=== PATIENT | female | born 1970 | race Caucasian/White ===

== ENCOUNTER 2017-12-02 18:49 | Emergency (ER) | payer OTHER ==
[~2017-12-02] VITALS: Ht 167.6 cm; Wt 74.8 kg
[2017-12-02] MEDS ORDERED: PROZAC20 MG PO (19:00)
[2017-12-02 19:38] LABS: URINE BILIRUBIN NEGATIVE (Negative); URINE BLOOD NEGATIVE (Negative); URINE CLARITY CLEAR; URINE COLOR YELLOW; URINE GLUCOSE-RANDOM NEGATIVE (Negative); URINE KETONES NEGATIVE (Negative); URINE LEUKOCYTES-REFLEX NEGATIVE (Negative); URINE NITRITE-REFLEX NEGATIVE (Negative); URINE PROTEIN NEGATIVE (Negative); URINE SPECIFIC GRAVITY 1.025 (1.005-1.030); URINE UROBILINOGEN 0.2 E.U./dl (0.2-1.0)
[2017-12-02 19:45] LABS: ABSOLUTE BASOPHILS 0.1 thou/uL (0.0-0.2); ABSOLUTE EOSINOPHILS 0.3 thou/uL (0.0-0.7); ABSOLUTE LYMPHOCYTES 4.9 thou/uL (0.8-5.3); ABSOLUTE MONOCYTES 0.6 thou/uL (0.0-1.2); ABSOLUTE NEUTROPHILS 4.7 thou/uL (1.6-8.1); BASOPHILS 1.3 %; EOSINOPHILS 2.4 %; HEMATOCRIT 41.1 % (37.0-47.0); HEMOGLOBIN 13.9 gm/dL (12.0-15.0); LYMPHOCYTES 46.2 %; MCH 32.1 pg (26.0-34.0); MCHC 33.7 g/dL (28.0-37.0); MCV 95.1 fL (80.0-100.0); MONOCYTES 5.7 %; MPV 9.7 fl. (7.2-11.1); NUCLEATED RBCS 0 /100WBC; PLATELET COUNT* 236 thou/uL (150-400); POLYS 44.4 %; RBC 4.32 mil/uL (4.20-5.00); RDW-CV 12.9 % (10.5-14.5); WBC 10.7 thou/uL (4.0-11.0)
[2017-12-02 19:54] LABS: CALCIUM 9.1 mg/dL (8.5-10.1); CREATININE 0.7 mg/dL (0.6-1.3); POTASSIUM 3.8 mmol/L (3.5-5.1)
[2017-12-02 20:04] LABS: ALBUMIN 3.5 g/dL (3.4-5.0); TOTAL BILIRUBIN 0.2 mg/dL (<0.1-1.0); TOTAL PROTEIN 7.5 g/dL (6.4-8.2)
[2017-12-02] MEDS ORDERED: CARAFATE1 GM PO (22:24)
[2017-12-02] MEDS ORDERED: NORCO 5-325 TA1 EACH PO (22:24)
[2017-12-02] MEDS ORDERED: ZOFRAN ODT4 MG PO (22:24)
[2017-12-02 22:35] VITALS: BP 125/82
--- NOTE | 2017-12-03 14:48 | EKG ---
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
--- NOTE | 2017-12-03 14:49 | EKG ---
[place] [address] ELECTROCARDIOGRAM REPORT Name: PIOTRDERRICK ESQUIVEL Room: [facility]#: [id number] Admission: 12/02/17 Attend Phys: Discharge: 12/02/17 Date of : 74 Report #: [id number] THIS REPORT FOR: //name// [facility] ED Test Date: 2017-12-02 Test Time: 21:37:31 Pat Name: DERRICK POSADAS Department: Room: Gender: F Lobby Attendant: CLAYTON : 1970 Requested By: Brayden Delaney Order Number: [id number] MD: Celestine Blood Measurements Intervals [place] Rate: 57 P: 6 [place]: 179 QRS: 26 QRSD: 101 T: 15 QT: 434 QTc: 423 Interpretive Statements Sinus rhythm No previous ECG available for comparison Electronically Signed On 12-03-2017 14:49:26 CDT by Celestine Blood [email or web address] <ELECTRONICALLY SIGNED> By: Celestine Blood MD, [facility] 12/03/17 1449 [id number] Celestine Blood MD, FACC /EPI
== END 2017-12-02 22:40 | disposition home or self-care (01) ==
LOC: M.ERS 18:49
PROVIDERS: Personal Emergency Response Attendant
DX: R07.9 Chest pain, unspecified (principal); Z90.710 Acquired absence of both cervix and uterus; Z88.0 Allergy status to penicillin; Z88.5 Allergy status to narcotic agent

== ENCOUNTER 2019-04-26 20:55 | Inpatient (IN) | payer OTHER ==
[~2019-04-26] VITALS: Ht 167.6 cm; Wt 75.7 kg
[~2019-04-26 20:55] MED LIST: CARAFATE1 GM PO; NORCO 5-325 TA1 EACH PO; PROZAC20 MG PO; ZOFRAN ODT4 MG PO
[2019-04-26 21:05] VITALS: BP 146/78
[2019-04-26 21:32] LABS: ABSOLUTE BASOPHILS 0.1 thou/uL (0.0-0.2); ABSOLUTE EOSINOPHILS 0.3 thou/uL (0.0-0.7); ABSOLUTE NEUTROPHILS 8.5 thou/uL (1.6-8.1); BASOPHILS 0.9 %; EOSINOPHILS 2.4 %; HEMATOCRIT 37.4 % (37.0-47.0); HEMOGLOBIN 12.5 gm/dL (12.0-15.0); LYMPHOCYTES 16.5 %; MCH 32.5 pg (26.0-34.0); MCHC 33.5 g/dL (28.0-37.0); MONOCYTES 8.3 %; MPV 9.9 fl. (7.2-11.1); NUCLEATED RBCS 0 /100WBC; PLATELET COUNT* 213 thou/uL (150-400); POLYS 71.9 %; RBC 3.86 mil/uL (4.20-5.00); RDW-CV 13.4 % (10.5-14.5); WBC 11.9 thou/uL (4.0-11.0)
[2019-04-26 21:40] LABS: CALCIUM 8.3 mg/dL (8.5-10.1); CREATININE 0.9 mg/dL (0.6-1.3); POTASSIUM 3.5 mmol/L (3.5-5.1)
[2019-04-26 21:45] LABS: ALBUMIN 3.5 g/dL (3.4-5.0); TOTAL BILIRUBIN 0.2 mg/dL (<0.1-1.0); TOTAL PROTEIN 7.3 g/dL (6.4-8.2)
[2019-04-26 22:39] VITALS: BP 131/67
[2019-04-26 23:00] VITALS: BP 119/72
[2019-04-27] MEDS ORDERED: INDERAL LA60 M1 PO (01:41)
--- NOTE | 2019-04-27 02:37 | NUR ---
RECEIVED PT FROM ED PER CART AT APPROX 2300 ACCOMPANIED BY FRANCHESCA LARSON. PT IS AWAKE AND ORIENTED X4. VSS ON ROOM AIR. PT IS NOT ON FLORIST. ADMISSION ASSESSMENTS DONE AND CHARTED. PT IS ORIENTED ON ROOM SET UP AND ON THE USE OF CALL LIGHT. PT DENIES PAIN OF THIS TIME. CALL LIGHT WITHIN REACH. HOURLY ROUNDING DONE FOR PT SAFETY.
[2019-04-27 04:00] VITALS: BP 105/67
[2019-04-27 08:00] VITALS: BP 111/71
--- NOTE | 2019-04-27 15:26 | NUR ---
ASSUMED PT CARE AT 0730, FULL ASSESMENT DONE CHARTED. PT A/O X4, C/O PAIN IN RIGHT CALF, UNBROKEN ABCESS TO RIGHT CALF PRESENT. WARM TO TOUCH, SWOLLEN. SURGERY DID BEDSIDE I&D LATE AM. PT TOLERATED WELL. PAIN MEDS GIVEN PER NOV. VSS, M/S STATUS. PT USES CALL LIGHT APPROPRIATLY FOR NEEDS. WILL CONTINUE TO MONITOR.
[2019-04-27 16:00] VITALS: BP 117/70
[2019-04-27 18:00] VITALS: BP 131/73
[2019-04-27 19:40] VITALS: BP 138/80
[2019-04-28] VITALS: BP 121/63
[2019-04-28 05:22] LABS: HEMATOCRIT 36.9 % (37.0-47.0); MCH 32.2 pg (26.0-34.0); MCHC 32.7 g/dL (28.0-37.0); MCV 98.5 fL (80.0-100.0); MPV 10.3 fl. (7.2-11.1); RBC 3.74 mil/uL (4.20-5.00); RDW-CV 13.6 % (10.5-14.5); WBC 9.2 thou/uL (4.0-11.0)
[2019-04-28 05:36] LABS: CALCIUM 8.3 mg/dL (8.5-10.1); CREATININE 0.6 mg/dL (0.6-1.3); POTASSIUM 3.8 mmol/L (3.5-5.1)
[2019-04-28 08:00] VITALS: BP 177/85
--- NOTE | 2019-04-28 08:00 | NUR ---
ASSUMED PT CARE AT 0730. PT WAS NOTED TO BE IN BED RESTING WITH BOTH EYES OPEN AND AWAKE. PT WAS ASSESSED AND DOCUMENTED IN THE CHART. PT WAS PLEASANT AND COMPLIENT WITH HER CARES. PT IS A/OX4, PTS ABCESS SITE ON RIGHT THIGH HAD A DRY INTACT DRESSING. RIGHT CALF DID NOT HAVE ANY REDNESS, BUT WAS NOTED TO HAVE SLIGHT SWOLLING. WILL CONTINUE TO MONITOR THIS SHIFT ASSUMED PT CARE AT 0730. PT NOTED TO BE RESTING IN BED AWAKE. ASSESSMENT COMPLETED AND CHARTED, PT STATED RIGHT CALF ABCESS AREA WAS SORE BUT ONLY WHEN THAT AREA WAS TOUCHED OR FROM MOVEMENT. PT STATED PAIN IN CALF WAS DULL AND MANAGEABLE. WILL CONTINUE TO MONITOR THIS SHIFT.
[2019-04-28 09:29] LABS: URINE BILIRUBIN NEGATIVE (Negative); URINE BLOOD TRACE (Negative); URINE CLARITY CLEAR; URINE COLOR YELLOW; URINE GLUCOSE-RANDOM NEGATIVE (Negative); URINE KETONES NEGATIVE (Negative); URINE LEUKOCYTES-REFLEX NEGATIVE (Negative); URINE NITRITE-REFLEX NEGATIVE (Negative); URINE PROTEIN NEGATIVE (Negative); URINE UROBILINOGEN 0.2 E.U./dl (0.2-1.0)
[2019-04-28 12:05] VITALS: BP 148/70
--- NOTE | 2019-04-28 13:03 | NUR ---
Pt is A&O. Resides at home with sister and son. Independent. No DME. No hx of HH or SNF. Goal is home at vt. Following.
[2019-04-28 16:07] VITALS: BP 121/78
--- NOTE | 2019-04-28 16:17 | NUR ---
WOUND NURSE: PATIENT NOT SEEN FOR WOUND CARE OR ASSESSMENT SHE IS CURRENTLY BEING MANAGED BY SURGERY GROUP WHO HAD ALREADY CHANGE DRESSING TODAY.
--- NOTE | 2019-04-28 18:58 | NUR ---
PT HAS C/O OF PAIN WHICH HAS BEEN MANAGEABLE THIS SHIFT WITH MEDICATIONS GIVEN, PT HAS BEEN ON AND OFF FIBRILE THIS SHIFT. MANAGED WITH MEDICATIONS. PT IS COMPLIANT WITH ALL CARES. PT GIVEN IV ABT AND TOLERATED WITH NO S/S OF ADVERSE EFFECTS. CALL LIGHT IS IN REACH. PT ABLE TO MAKE NEEDS KNOW.
[2019-04-28 19:50] VITALS: BP 123/79
[2019-04-29] VITALS: BP 113/66
--- NOTE | 2019-04-29 05:08 | NUR ---
PATIENT PROGRESSING TOWARDS GOALS: RIGHT CALF ABSCESS LESS SWOLLEN AND RED. PATIENT RECEIVING PAIN RELIEF WITH APPLICATION OF ICE, REST, AND MEDS PER MAR. CALL LIGHT WITHIN REACH
[2019-04-29 05:15] LABS: ABSOLUTE BASOPHILS 0.1 thou/uL (0.0-0.2); ABSOLUTE EOSINOPHILS 0.2 thou/uL (0.0-0.7); ABSOLUTE LYMPHOCYTES 2.8 thou/uL (0.8-5.3); ABSOLUTE MONOCYTES 0.8 thou/uL (0.0-1.2); ABSOLUTE NEUTROPHILS 4.9 thou/uL (1.6-8.1); BASOPHILS 1.3 %; EOSINOPHILS 2.2 %; HEMATOCRIT 36.8 % (37.0-47.0); HEMOGLOBIN 12.1 gm/dL (12.0-15.0); LYMPHOCYTES 31.8 %; MCH 32.1 pg (26.0-34.0); MCV 97.4 fL (80.0-100.0); MONOCYTES 9.3 %; MPV 9.7 fl. (7.2-11.1); NUCLEATED RBCS 0 /100WBC; PLATELET COUNT* 190 thou/uL (150-400); POLYS 55.4 %; RBC 3.78 mil/uL (4.20-5.00); RDW-CV 12.9 % (10.5-14.5); WBC 8.8 thou/uL (4.0-11.0)
[2019-04-29 06:30] LABS: CALCIUM 8.9 mg/dL (8.5-10.1); CREATININE 0.6 mg/dL (0.6-1.3); POTASSIUM 3.9 mmol/L (3.5-5.1)
--- NOTE | 2019-04-29 07:05 | CON ---
[address] [address] CONSULTATION Name: DERRICK POSADAS Room: [address] M.R.#: [id number] Admission: 04/26/19 Attend Phys: Joni Sanchez, Discharge: Date of : 74 Report #: [id number] THIS REPORT FOR: //name// CC: Drew Sanchez DATE OF SERVICE: 04/28/2019 INFECTIOUS DISEASE CONSULTATION ATTENDING PHYSICIAN: Joni Sanchez MD REASON FOR EVALUATION: Abscess right calf, complicated by systemic illness. HISTORY OF PRESENT ILLNESS: Chart reviewed and the patient examined. This is a 49-year-old woman without significant medical history, who states developed a "cyst" right posterior medial calf last number of days, been described as kind of a hard knot spontaneously over 3-4 days prior to her admission, had increasing pain and swelling associated with the site, made difficult to walk and subsequently developed high-grade temperature elevations. She did present to the Emergency Room on 04/26. Evaluation was undertaken. Borderline elevated white count. Lactic acid was elevated at 2.3 and repeat was 1.0. Clinically, was felt to have a subcutaneous abscess, underwent operative debridement that confirmed it. Cultures have been sent, empirically placed on combination therapy with vancomycin, as well as ceftriaxone. She denies any previous similar type situations. She does have significant degree of pain at this point. She has been primarily afebrile over the last 36 hours. Denies any pulmonary or gastrointestinal related complaints. She is not encephalopathic. ALLERGIES: PENICILLINS, CODEINE. CURRENT MEDICATIONS: Enoxaparin, propranolol, fluoxetine, vancomycin, ceftriaxone, hydrocodone, and ondansetron. PAST MEDICAL HISTORY: Does have a history of chronic migraines, left shoulder fracture with repair, previous hysterectomy. SOCIAL HISTORY: Smokes a half pack a day for the last 37 years, occasional ethanol. No illicit drug use. FAMILY HISTORY: Noncontributory. REVIEW OF SYSTEMS: As above, otherwise unremarkable 10-point review of systems except noted in the history of present illness. PHYSICAL EXAMINATION: [place] [address] CONSULTATION Name: DERRICK POSADAS Room: [address]#: [id number] Admission: 04/26/19 Attend Phys: Joni Sanchez, Discharge: Date of : 74 Report #: [id number] GENERAL: She is alert, cooperative, in mild distress, appears reasonably well nourished. VITAL SIGNS: Temperature 98.8, pulse 73, respirations 16, blood pressure 146/86. SKIN: Warm, has extensive numbers of tattoos. HEENT: Normocephalic. Extraocular muscles intact. NECK: Supple. LUNGS: Clear to auscultation. HEART: Regular. I do not appreciate a murmur. ABDOMEN: Soft, nontender, nondistended. EXTREMITIES: Right calf was inspected. Even light touch produced some significant tenderness around the margins without any overt evidence of significant cellulitic process. There is a dressing that was maintained. GENITOURINARY: Deferred. RECTAL: Deferred. LABORATORY DATA: Urinalysis unremarkable. Blood cultures are sterile thus far, collected on the . Electrolytes: Sodium 138, potassium 3.8, chloride 102, bicarbonate is 31, anion gap of 5, BUN and creatinine 8 and 0.6, glucose of 153, estimated GFR of 107. CBC: White count of 9.2, H and H 12.0 and 36.9, and platelets of 194. Lactic acid serially were 2.3 and 1.0. ASSESSMENT: Right calf skin and soft tissue with abscess. We will continue empiric antimicrobial therapy, presumed skin etiology is Staph or Strep, should have reasonable coverage. No evidence of adverse drug effects or hypersensitivities at this point. Continue wound care as per Surgery. We will monitor expectantly. At this point, I do not think she is in particular risk for nosocomial related infectious complications when she is able to increase her activity. <ELECTRONICALLY SIGNED> By: Silvino Rey MD 04/29/19 0705 [id number] Rey MD /nt
[2019-04-29 08:18] VITALS: BP 122/74
--- NOTE | 2019-04-29 09:12 | NUR ---
ASSUMED CARE OF PT THIS AM AROUND 0715- M/S STATUS IN PLACE AND MAINTAINED INDICATED- UPON ASSESSMENT PT NOTED TO BE RESTING IN BED, WATCHING TV- PT A&O X4- CONTINENT OF BOWEL AND BLADDER- UP AD-EDUARDO IN ROOM, STEADY GAIT NOTED- LCTA, RESP EVEN AND UN-LABORED- VSS, O2 SAT 95% ON RA- ABD SOFT/ROUND/NON-TENDER, BS X4 QUADS- LAST BM REPORTED X3 DAYS AGO, SENNA GIVEN THIS AM-BS MONITORED ORDERED- IV NOTED TO RIGHT AC INTACT, IV ABT INFUSSING PRESCIBED- RIGHT CALF ABSCESS NOTED WITH DRESSING INTACT, NO VISIBLE DRAINGE NOTED; DRESSING CHANED PER SURGERY THIS AM- PT DENIES ANY C/O PAIN/DISCOMFORT THIS TIME- CALL LIGHT AND PERSONAL BELONGINGS WITH IN REACH- PT MAKES NEEDS KNOWN- ALL NEEDS MET AT THIS TIME-WCTM
--- NOTE | 2019-04-29 09:33 | NUR ---
WOUND CARE NOTE: REQUESTED TO APPLY SINGLE LAYER TUBIGRIP. PATIENT MEASURED FOR SIZE E TUBIGRIP. THIS WAS APPLIED. EDUCATED PATIENT IF IT FELT TOO TIGHT TO ELEVATE LEG AND IF NO RELIEF, REMOVE GARMET. COMMUNICATED UNDERSTANDING.
[2019-04-29 15:46] VITALS: BP 102/60
--- NOTE | 2019-04-29 16:10 | NUR ---
PT CURRENTLY RESTING IN BED BED-M/S STATUS IN PLACE AND MAINTAINED INDICATED- IV TO RIGHT AC INTACT AND SL- IV ABT GIVEN THIS SHIFT PRESCRIBED- WN HERE TO ASSESS RIGHT CALF ABSCESS AND FIT GIT FOR TUP GHRIP THIS SHIFT ORDERED- US TO RLE COMPLETED THIS SHIFT AND NOTED TO BE NEGATIVE- TORADOL ORDERED TID THIS SHIFT SCHEDULED WITH 1ST DOSE GIVEN- PT REPORTS MEDICATION TO BE EFFECTIVE- PT MAKES NEEDS KNOWN- ALL NEEDS MET AT THIS TIME-WCTM
[2019-04-29 20:00] VITALS: BP 111/58
[2019-04-30] VITALS: BP 116/62
[2019-04-30 04:00] VITALS: BP 132/81
--- NOTE | 2019-04-30 06:29 | NUR ---
ASSUMED CARE OF PT AFTER REPORT AT 1930. PT A&OX4. VSS. PHYSICAL ASSESSMENT COMPLETED AND CHARTED. PT ON RA. PT ON MEDSURG STATUS. PT UPADLIB TO RESTROOM. PT COMPLAINED OF RIGHT CALF PAIN- MEDS GIVEN PER NOV. PT ABLE TO SLEEP WELL ON BED. CALL LIGHT WITHIN REACH.
[2019-04-30 07:59] LABS: ABSOLUTE BASOPHILS 0.1 thou/uL (0.0-0.2); ABSOLUTE EOSINOPHILS 0.2 thou/uL (0.0-0.7); ABSOLUTE LYMPHOCYTES 2.5 thou/uL (0.8-5.3); ABSOLUTE MONOCYTES 0.7 thou/uL (0.0-1.2); ABSOLUTE NEUTROPHILS 4.7 thou/uL (1.6-8.1); BASOPHILS 0.6 %; EOSINOPHILS 2.5 %; HEMATOCRIT 33.5 % (37.0-47.0); HEMOGLOBIN 11.1 gm/dL (12.0-15.0); LYMPHOCYTES 30.9 %; MCH 31.9 pg (26.0-34.0); MCHC 33.1 g/dL (28.0-37.0); MCV 96.2 fL (80.0-100.0); MONOCYTES 8.1 %; MPV 9.4 fl. (7.2-11.1); NUCLEATED RBCS 0 /100WBC; PLATELET COUNT* 188 thou/uL (150-400); POLYS 57.9 %; RBC 3.48 mil/uL (4.20-5.00); RDW-CV 13.1 % (10.5-14.5); WBC 8.1 thou/uL (4.0-11.0)
[2019-04-30 08:04] LABS: CALCIUM 8.4 mg/dL (8.5-10.1); CREATININE 0.6 mg/dL (0.6-1.3); POTASSIUM 3.6 mmol/L (3.5-5.1)
--- NOTE | 2019-04-30 08:10 | NUR ---
pT RESTING IN BED, APPEARS ALERT O X 4, DENIES CHEST PAIN, SOB, C/O R CALF PAIN, SURGERY EARLIER TO SEE
[2019-04-30 08:14] VITALS: BP 130/70
[2019-04-30 13:47] VITALS: BP 130/70
[2019-04-30] MEDS ORDERED: DOXYCYCLINE 10100 MG PO (14:20)
[2019-04-30 14:41] VITALS: BP 130/70
[2019-04-30] MEDS ORDERED: MINOCIN50 MG PO (14:49)
[2019-04-30 15:38] VITALS: BP 130/70
== END 2019-04-30 16:30 | disposition home or self-care (01) | DRG 854 ==
LOC: M.ERS 20:55 → M.TBA-ER 21:21 → M.2W 21:21
PROVIDERS: Internal Medicine; Physician Assistant; Surgery; ADMIT Family Medicine
PROC: 0J9N0ZZ Drainage of Right Lower Leg Subcutaneous Tissue and Fascia, Open Approach (ICD-10-PCS; principal; 2019-04-27)
DX: A41.9 Sepsis, unspecified organism (principal); L02.415 Cutaneous abscess of right lower limb; L03.115 Cellulitis of right lower limb; F41.9 Anxiety disorder, unspecified; F32.9 Major depressive disorder, single episode, unspecified; R73.9 Hyperglycemia, unspecified; L72.8 Other follicular cysts of the skin and subcutaneous tissue; G43.909 Migraine, unspecified, not intractable, without status migrainosus; Z90.710 Acquired absence of both cervix and uterus; Z88.5 Allergy status to narcotic agent; Z88.0 Allergy status to penicillin; Z91.048 Other nonmedicinal substance allergy status